=== PATIENT | male | born 1970 | race Caucasian/White ===

== ENCOUNTER 2021-01-27 18:53 | Emergency (ER) | payer BC, OTHER ==
--- NOTE | 2021-01-27 19:01 | ED Chest Pain ---
General Stated Complaint: CP Source: patient Exam Limitations: no limitations History of Present Illness Date Seen by Provider: Jan 27, 2021 Time Seen by Provider: 19:00 Initial Comments 50-year-old male with past medical history of hypertension coming in due to mid sternal chest burning that has been intermittent for the past couple hours. Not hurting at this time. Did not get worse with exertion. Never had anything like this happen before. Nothing seems to make it better or worse. No cough, fever, shortness of breath, abdominal pain, nausea, vomiting, weakness, numbness, headache, or any other concerns. Denies any previous history of DVT or PE. No recent surgeries. Allergies and Home Medications Allergies Coded Allergies: No Known Drug Allergies (Unverified , 01/27/21) Patient Home Medication List Home Medication List Reviewed: Yes Review of Systems Review of Systems Constitutional: No chills, No fever EENTM: No Symptoms Reported Respiratory: Denies Cough, Denies Shortness of Air Cardiovascular: Chest Pain Gastrointestinal: Denies Abdominal Pain, Denies Nausea, Denies Vomiting Genitourinary: No Symptoms Reported Musculoskeletal: No joint pain Skin: No rash Psychiatric/Neurological: No Symptoms Reported Endocrine: No Symptoms Reported Hematologic/Lymphatic: No Symptoms Reported All Other Systems Reviewed Negative Unless Noted: Yes Past Jfckpmh-Qilgkf-Tpaavm Hx Patient Social History Tobacco Use?: Yes Tobacco type used: Cigarettes Physical Exam Vital Signs Vital Signs - First Documented 01/27/21 18:55 Pulse 90 Resp 18 B/P (MAP) 198/105 (136) Pulse Ox 99 O2 Delivery Room Air Capillary Refill : Height, Weight, BMI Height: '" Weight: lbs. oz. kg; BMI Method: General Appearance: No Apparent Distress, WD/WN HEENT: PERRL/EOMI, Normal ENT Inspection, Pharynx Normal Neck: Full Range of Motion, Normal Inspection, Non Tender, Supple Respiratory: Chest Non Tender, Lungs Clear, Normal Breath Sounds, No Accessory Muscle Use, No Respiratory Distress Cardiovascular: Regular Rate, Rhythm, No Edema, Normal Peripheral Pulses Gastrointestinal: Normal Bowel Sounds, Non Tender, Soft; No Distended, No Guarding Extremity: Normal Capillary Refill, Normal Inspection, Normal Range of Motion, Non Tender, No Calf Tenderness, No Pedal Edema Neurologic/Psychiatric: Alert, No Motor/Sensory Deficits, Normal Mood/Affect Skin: Normal Color, Warm/Dry Lymphatic: No Adenopathy Progress/Results/Core Measures Results/Orders Lab Results Laboratory Tests Test 01/27/21 19:00 Range/Units White Blood Count 11.9 H 4.3-11.0 10^3/uL Red Blood Count 5.11 4.30-5.52 10^6/uL Hemoglobin 15.8 13.3-17.7 g/dL Hematocrit 47 40-54 % Mean Corpuscular Volume 91 80-99 fL Mean Corpuscular Hemoglobin 31 25-34 pg Mean Corpuscular Hemoglobin Concent 34 32-36 g/dL Red Cell Distribution Width 12.5 10.0-14.5 % Platelet Count 344 130-400 10^3/uL Mean Platelet Volume 9.5 9.0-12.2 fL Immature Granulocyte % (Auto) 0 % Neutrophils (%) (Auto) 63 42-75 % Lymphocytes (%) (Auto) 27 12-44 % Monocytes (%) (Auto) 8 0-12 % Eosinophils (%) (Auto) 2 0-10 % Basophils (%) (Auto) 1 0-10 % Neutrophils # (Auto) 7.4 1.8-7.8 X 10^3 Lymphocytes # (Auto) 3.2 1.0-4.0 X 10^3 Monocytes # (Auto) 0.9 0.0-1.0 X 10^3 Eosinophils # (Auto) 0.2 0.0-0.3 10^3/uL Basophils # (Auto) 0.1 0.0-0.1 10^3/uL Immature Granulocyte # (Auto) 0.0 0.0-0.1 10^3/uL Sodium Level 142 135-145 MMOL/L Potassium Level 4.1 3.6-5.0 MMOL/L Chloride Level 107 98-107 MMOL/L Carbon Dioxide Level 21 21-32 MMOL/L Anion Gap 14 5-14 MMOL/L Blood Urea Nitrogen 12 7-18 MG/DL Creatinine 1.30 0.60-1.30 MG/DL Estimat Glomerular Filtration Rate 58 BUN/Creatinine Ratio 9 Glucose Level 124 H 70-105 MG/DL Calcium Level 9.5 8.5-10.1 MG/DL Corrected Calcium 8.5-10.1 MG/DL Total Bilirubin 0.3 0.1-1.0 MG/DL Aspartate Amino Transf (AST/SGOT) 24 5-34 U/L Alanine Aminotransferase (ALT/SGPT) 32 0-55 U/L Alkaline Phosphatase 70 40-136 U/L Troponin I < 0.30 <0.30 NG/ML Total Protein 7.6 6.4-8.2 GM/DL Albumin 4.6 H 3.2-4.5 GM/DL My Orders Orders - REGINA HARRIS MD Cbc With Automated Diff (01/27/21 18:57) Comprehensive Metabolic Panel (01/27/21 18:57) Troponin I Fs (01/27/21 18:57) Chest Pa/Lat (2 View) (01/27/21 18:57) Ekg Tracing (01/27/21 18:57) Monitor-Rhythm Ecg Trace Only (01/27/21 18:57) Ed Iv/Invasive Line Start (01/27/21 18:57) Aspirin Chewable Tablet (Baby Aspirin Ch (01/27/21 19:15) Antacid Suspension (Mylanta Suspension (01/27/21 19:15) Medications Given in ED Current Medications Medications Dose Ordered Sig/Michaelle Route Start Time Stop Time Status Last Admin Dose Admin Al Hydrox/Mg Hydrox/Simethicone 30 ml ONCE ONCE PO 01/27/21 19:15 01/27/21 19:16 DC 01/27/21 19:06 30 ML Aspirin 324 mg ONCE ONCE PO 01/27/21 19:15 01/27/21 19:16 DC 01/27/21 19:07 324 MG Vital Signs/I&O 01/27/21 18:55 Pulse 90 Resp 18 B/P (MAP) 198/105 (136) Pulse Ox 99 O2 Delivery Room Air Progress Progress Note : Progress Note 50-year-old male with above history coming in due to chest burning that is now better. ABCs are intact and vitals are stable presentation. Physical exam reassuring with no focal abnormalities. Differential includes ACS versus PE versus less likely dissection versus pneumonia versus pneumothorax versus some other etiology. Low suspicion for PE with low risk per [place] score. Given that his main complaint was burning, and he no longer is having that, I I believe PE is effectively ruled out. His heart score is 3 for age and risk factors with smoking and high blood pressure. Clinical suspicion is lower given the pain was not worse with exertion, and is completely gone at this time. EKG without any ischemic changes. Will get troponin to further assess. Chest x-ray negative for pneumothorax or pneumonia. Cardiac silhouette is normal and has low suspicion for tamponade. He was given aspirin as well as Maalox. Labs reassuring including negative troponin. His story is reassuring as well, specifically he reiterated that when he was working the pain got better the more he exerted himself. Mostly reassuring that he is pain-free right now. I believe he is stable for discharge with outpatient follow-up. He was sent home with strict return precautions. I counseled him on taking baby aspirin daily and stop smoking. Initial ECG Impression Date: Jan 27, 2021 Initial ECG Impression Time: 18:57 Initial ECG Rate: 84 Initial ECG Rhythm: Normal Sinus Comment Narrow QRS, borderline normal axis to left axis deviation, no significant ST changes or T wave abnormalities Diagnostic Imaging Diagonstic Imaging: Xray Plain Films/CT/US/NM/MRI: chest Comments Chest x-ray ordered and interpreted by me showing no obvious pneumothorax, pneumonia, normal cardiac silhouette. [facility], [place] NAME: [facility] REC#: [id number] PT STATUS: REG ER : 1970 PHYSICIAN: REGINA HARRIS MD ADMIT DATE: 01/27/21/ER FS Draft Date of Exam:01/27/21 CHEST PA/LAT (2 VIEW) EXAMINATION: Chest 2 view HISTORY: Chest pain COMPARISON: None available. FINDINGS: Heart size and pulmonary vasculature are normal. The lungs are clear without consolidation, pleural effusion, or pneumothorax. Degenerative changes of the thoracic spine. Osseous structures are otherwise intact. IMPRESSION: 1. No acute radiographic abnormality in the chest. Dictated on workstation # [id number] Dict: 01/27/211921 Trans: 01/27/211923 [facility] [id number] Interpreted by: FLORES LATHAM DO Electronically signed by: Departure Impression Primary Impression: Chest pain Qualified Codes: R07.9 - Chest pain, unspecified Disposition: 01 HOME, SELF-CARE Condition: Improved Departure-Patient Inst. Decision time for Depature: 19:46 Referrals: MARIBEL PARKINSON MD (PCP/Family) Primary Care Physician Patient Instructions: Chest Pain (DC) Add. Discharge Instructions: You were seen in the emergency department for chest pain/burning. If this happens in the future, rest, you can try an antacid, and if the pain continues or worsens then come to the ER. Please follow-up with your primary care provider within the next week or so. Begin taking a baby aspirin daily and of course we recommend that you stop smoking. REGINA HARRIS MD Jan 27, 2021 19:01
[2021-01-27] MEDS ORDERED: ANTACID SUSP 30 ML UDC (MYLANTA) PO ONE (19:15)
[2021-01-27] MEDS ORDERED: ASPIRIN 81 MG CHEW (CHILDREN'S ASA) PO ONE (19:15)
--- NOTE | 2021-01-27 19:24 | Diagnostic Imaging Report ---
EXAMINATION: Chest 2 view HISTORY: Chest pain COMPARISON: None available. FINDINGS: Heart size and pulmonary vasculature are normal. The lungs are clear without consolidation, pleural effusion, or pneumothorax. Degenerative changes of the thoracic spine. Osseous structures are otherwise intact. IMPRESSION: 1. No acute radiographic abnormality in the chest. Dictated by: Dictated on workstation # [id number]
[2021-01-27 19:36] LABS: BASOPHILS % (AUTO) 1 % (0-10); EOSINOPHILS % (AUTO) 2 % (0-10); HEMATOCRIT 47 % (40-54); HEMOGLOBIN 15.8 g/dL (13.3-17.7); LYMPHOCYTES # (AUTO) 3.2 X 10^3 (1.0-4.0); LYMPHOCYTES % (AUTO) 27 % (12-44); MEAN CORPUSCULAR HEMOGLOBIN 31 pg (25-34); MEAN CORPUSCULAR HGB CONC 34 g/dL (32-36); MEAN CORPUSCULAR VOLUME 91 fL (80-99); MEAN PLATELET VOLUME 9.5 fL (9.0-12.2); MONOCYTES # (AUTO) 0.9 X 10^3 (0.0-1.0); MONOCYTES % (AUTO) 8 % (0-12); NEUTROPHILS # (AUTO) 7.4 X 10^3 (1.8-7.8); NEUTROPHILS % (AUTO) 63 % (42-75); PLATELET COUNT 344 10^3/uL (130-400); WHITE BLOOD COUNT 11.9 10^3/uL (4.3-11.0)
[2021-01-27 19:37] LABS: BASOPHILS # (AUTO) 0.1 10^3/uL (0.0-0.1); BUN/CREATININE RATIO 9; CARBON DIOXIDE 21 MMOL/L (21-32); CHLORIDE 107 MMOL/L (98-107); EOSINOPHILS # (AUTO) 0.2 10^3/uL (0.0-0.3); GFR ESTIMATED 58; GLUCOSE 124 MG/DL (70-105); POTASSIUM 4.1 MMOL/L (3.6-5.0); SODIUM 142 MMOL/L (135-145)
[2021-01-27 19:38] LABS: ALANINE AMINOTRANSFERASE 32 U/L (0-55); ALBUMIN 4.6 GM/DL (3.2-4.5); ALKALINE PHOSPHATASE 70 U/L (40-136); BILIRUBIN,TOTAL 0.3 MG/DL (0.1-1.0); CALCIUM 9.5 MG/DL (8.5-10.1); TOTAL PROTEIN 7.6 GM/DL (6.4-8.2)
[2021-01-27 19:53] VITALS: BP 151/91
== END 2021-01-27 19:53 | disposition home or self-care (01) ==
LOC: ER FS 18:55
DX: R07.9 Chest pain, unspecified (principal); I10 Essential (primary) hypertension; Z72.0 Tobacco use
CPT/HCPCS: 36415; 71046; 80053; 84484; 85025; 93005; 93041